=== PATIENT | female | born 1970 | race Caucasian/White ===

== ENCOUNTER 2017-10-18 18:30 | Emergency (ER) | payer OTHER ==
[~2017-10-18] VITALS: Ht 160 cm; Wt 65.0 kg
[~2017-10-18 18:30] MED LIST: CIPR500T4 PO; GABA100C4 PO; KETO10 PO; STOO100C PO
[2017-10-18 18:42] VITALS: BP 147/87; PULSE 59; RESP 18; TEMP 98.1; O2SAT 98
[2017-10-18] MEDS ORDERED: [UNRECOGNIZED DRUG - REMARK] (18:47)
--- NOTE | 2017-10-18 18:57 | PD ---
HPI Chief Complaint: Psychiatric Symptoms Time Seen by Provider: 18:45 Travel History International Travel<30 days: No Contact w/Intl Traveler<30days: No Traveled to known affect area: No History of Present Illness HPI 47-year-old female presents emergency department under the Shea act via EMS for making suicidal comments to her roommate. Patient states she wants to kill herself. Patient recently had a stroke, and the roommate advised that there is a firearm in the house which the patient has stated she wanted to kill herself with. Patient has history of polysubstance abuse. She states she did use crack 2 days ago. She is upset and frustrated with her inability to care for herself and recurrent falls secondary to her recent CVA. Patient was treated for this at [facility] in [place] approximately 2 months ago. She currently has no significant acute pain or other acute medical issues. She is noted to have multiple bruises and superficial abrasions in various stages of healing. She has no known drug allergies. PFSH Past Medical History Cancer: No Cardiovascular Problems: No Diabetes: No Endocrine: No Genitourinary: No Hepatitis: Yes (c) Hiatal Hernia: No Immune Disorder: No Musculoskeletal: Yes (back pain) Neurologic: No Psychiatric: Yes (anxiety a long time ago ok now) Reproductive: Yes (fibroids) Respiratory: No Thyroid Disease: No ?: Not Past Surgical History Abdominal Surgery: Yes (lap keyla) AICD: No Body Medical Devices: NONE Cardiac Surgery: No Ear Surgery: No Endocrine Surgery: No Eye Surgery: No Genitourinary Surgery: No Gynecologic Surgery: Yes (tubal) Joint Replacement: No Oral Surgery: Yes (tonsillectomy) Pacemaker: No Social History Alcohol Use: Yes Tobacco Use: Yes Substance Use: Yes (RELAPSED COCAINE) Allergies-Medications (Allergen,Severity, Reaction): Coded Allergies: No Known Allergies (Unverified , 11/12/15) Reported Meds & Prescriptions Reported Meds & Active Scripts Active Gabapentin 100 Mg Cap 100 Mg PO DAILY Toradol (Ketorolac Tromethamine) 10 Mg Tab 10 Mg PO Q6H PRN Reported Colace (Docusate Sodium) 100 Mg Cap 100 Mg PO BID Cipro (Ciprofloxacin HCl) 500 Mg Tab 500 Mg PO BID Review of Systems Except as stated in HPI: all other systems reviewed are Neg General / Constitutional: No: Fever Eyes: No: Visual changes HENT: No: Headaches Cardiovascular: No: Chest Pain or Discomfort Respiratory: No: Shortness of Breath Gastrointestinal: No: Abdominal Pain Genitourinary: No: Dysuria Musculoskeletal: No: Pain Skin: Positive Lesions (See history of present illness per), No Rash Neurologic: Positive: Focal Abnormalities (See history of present illness), Slurred Speech, No: Weakness Psychiatric: No: Depression Endocrine: No: Polydipsia Hematologic/Lymphatic: No: Easy Bruising Physical Exam Narrative GENERAL: Patient appears frustrated, but oriented 3. She is able to speak in full sentences. She does have mild slurred speech due to left sided facial weakness SKIN: Warm and dry. Normal color. Normal turgor. Patient has multiple bruises everywhere in multiple stages of healing secondary to recurrent falls. Patient is also noted to have minor abrasions associated with falling as well. Nothing is currently acute or has signs of cellulitis or abscess. HEAD: Atraumatic. Normocephalic. Nontender. EYES: Pupils equal and round. No scleral icterus. No injection or drainage. Patient's left upper eyelid is slightly bruised. She has left-sided eye droop. ENT: No nasal bleeding or discharge. Mucous membranes pink and moist. No signs of dental injury. Pharynx is clear. Airways patent. Left-sided facial droop is noted. NECK: Trachea midline. No bony tenderness or step-off. Range of motion is full and supple CARDIOVASCULAR: Regular rate and rhythm. RESPIRATORY: No accessory muscle use. Clear to auscultation. Breath sounds equal bilaterally. GASTROINTESTINAL: Abdomen soft, non-tender, nondistended. Hepatic and splenic margins not palpable. MUSCULOSKELETAL: Extremities without clubbing, cyanosis, or edema. No obvious deformities. Patient is right-sided weakness secondary to previous CVA. NEUROLOGICAL: Awake and alert. No obvious cranial nerve deficits. Motor grossly within normal limits. Mildly slurred speech. PSYCHIATRIC: Appropriate mood and affect; insight and judgment normal. Data Data Last Documented VS Vital Signs Date Time Temp Pulse Resp B/P (MAP) Pulse Ox O2 Delivery O2 Flow Rate FiO2 10/18/17 18:42 98.1 59 18 147/87 (107) 98 Orders Orders Complete Blood Count With Diff (10/18/17 18:45) Comprehensive Metabolic Panel (10/18/17 18:45) Thyroid Stimulating Hormone (10/18/17 18:45) Urinalysis - C+S If Indicated (10/18/17 18:45) Psych Screen (10/18/17 18:45) Drug Screen, Random Urine (10/18/17 18:45) Alcohol (Ethanol) (10/18/17 18:45) MDM Medical Decision Making Medical Screen Exam Complete: Yes Emergency Medical Condition: Yes Medical Record Reviewed: Yes Differential Diagnosis Shea act. Depression. Suicidal ideation. Recent CVA. History drug use. Narrative Course Patient appears medically stable at time of exam. Psychiatric labs ordered per protocol. Patient is medically clear for psychiatric evaluation. Psych screen is ordered. Condition: Stable Umair Rome October 18, 2017 18:57
[2017-10-18 18:59] LABS: AUTOMATED NEUTROPHIL # 6.8 TH/MM3 (1.8-7.7); BASOPHIL # 0.1 TH/MM3 (0-0.2); BASOPHIL % 0.8 % (0.0-2.0); EOSINOPHIL # 0.1 TH/MM3 (0-0.4); EOSINOPHIL % 1.2 % (0.0-4.0); HEMATOCRIT 37.6 % (35.0-46.0); LYMPH % 16.9 % (9.0-44.0); LYMPHOCYTE # 1.7 TH/MM3 (1.0-4.8); MEAN CELL VOLUME 86.8 FL (80.0-100.0); MEAN CORPUSCULAR HGB CONC 34.6 % (32.0-36.0); MEAN PLATELET VOLUME 9.1 FL (7.0-11.0); MONO % 11.1 % (0.0-8.0); MONOCYTE # 1.1 TH/MM3 (0-0.9); PLATELET COUNT 282 TH/MM3 (150-450); RED BLOOD COUNT 4.34 MIL/MM3 (4.00-5.30); RED CELL DISTRIBUTION WIDTH 13.3 % (11.6-17.2); WHITE BLOOD COUNT 9.8 TH/MM3 (4.0-11.0)
[2017-10-18 19:28] LABS: ALBUMIN 3.9 GM/DL (3.4-5.0); AST (GOT) 45 U/L (15-37); BICARBONATE 23.3 MEQ/L (21.0-32.0); BLOOD UREA NITROGEN 13 MG/DL (7-18); CALCIUM 8.8 MG/DL (8.5-10.1); CHLORIDE 110 MEQ/L (98-107); CREATININE 0.81 MG/DL (0.50-1.00); GLOMERULAR FILTRATION RATE 75 ML/MIN (>89); GLUCOSE,RANDOM 89 MG/DL (74-106); SODIUM (NA) 144 MEQ/L (136-145)
[2017-10-18 19:29] LABS: ALT (GPT) 49 U/L (10-53)
[2017-10-18 19:38] LABS: ALKALINE PHOSPHATASE 67 U/L (45-117); TOTAL BILIRUBIN ADULT 0.7 MG/DL (0.2-1.0); TOTAL PROTEIN 7.6 GM/DL (6.4-8.2)
[2017-10-18] MEDS ORDERED: POTASSIUM CHLORIDE 20 MEQ CONTROLLED RELEASE TAB PO ONE (22:00)
[2017-10-18 23:51] LABS: BACTERIA, URINE RARE /hpf; BILIRUBIN, URINE NEG (NEG); BLOOD, URINE NEG (NEG); GLUCOSE,URINE NEG (NEG); KETONE, URINE 10 mg/dL (NEG); MUCUS URINE MOD /lpf (OCC); NITRITE,URINE POS (NEG); PH, URINE 5.5 (5.0-8.5); SQUAMOUS EPITHELIAL CELL URINE 4 /hpf (0-5); URINE COLOR YELLOW (YELLW/STRAW); URINE LEUKOCYTE ESTERASE TRACE (NEG)
[2017-10-19 09:36] VITALS: BP 125/56; PULSE 50; RESP 15; TEMP 98.2; O2SAT 98
--- NOTE | 2017-10-19 11:53 | PD ---
History of Present Illness Chief Complaint: Psychiatric Symptoms Time Seen by Provider: 11:45 Travel History International Travel<30 Days: No Contact w/Intl Traveler<30days: No Known affected area: No Legal Status Legal Status: Shea Act Shea Act Signed By: RAF MONTES History of Present Illness: History of Present Illness HPI 47-year-old, , single female with history of cocaine use disorder who presents emergency department under the Shea act via EMS for making suicidal comments to her roommate. The Shea act alleges that the patient has been making suicidal statements to her roommate, Aleah. And that she has stated she wants to kill herself. The room and advised the police that there was a firearm in the house which the patient has stated she wanted to kill herself with. The patient has recently suffered a stroke, has a right-sided weakness and is wheelchair bound. EMR reviewed. No previous contact with [facility] psychiatry. Current toxicology is positive for cocaine. The patient admits to having used cocaine 2 days ago. Staff has contacted her roommate who reports the patient had been up for 4 days after the use of crack cocaine. That she has been making statements as stated in the Shea act. Patient is seen in Main ED. She is asleep but awakens with verbal stimuli but reports she feels very tired. Her speech is clear and logical. Mood is irritable. She states that she did not say she wanted to kill herself . She admits to having stated that she had preferred that she would have after the stroke. She does not have access to the weapon as it belongs to the friend Carrington and he usually carries it on his person. She also states she does not know how to use a gun. Patient goes on to state that her friends called 911 because they wanted her to get help and she was refusing to come to the hospital for evaluation of swelling in 1 of her legs. Patient continues to deny any suicidal or homicidal ideation and states "I do not want to do that because I want to live". Telephone call to friend at [phone]. Message left to return call. PFSH Past Medical History Cancer: No Cardiovascular Problems: No Cerebrovascular Accident: Yes Diabetes: No Endocrine: No Genitourinary: No Hepatitis: Yes (c) Hiatal Hernia: No Hypertension: Yes Immune Disorder: No Musculoskeletal: Yes (back pain) Neurologic: No Psychiatric: Yes (anxiety a long time ago ok now) Reproductive: Yes (fibroids) Respiratory: No Thyroid Disease: No Tetanus Vaccination: Unknown Influenza Vaccination: No ?: Not Past Surgical History Abdominal Surgery: Yes (lap keyla) AICD: No Body Medical Devices: NONE Cardiac Surgery: No Ear Surgery: No Endocrine Surgery: No Eye Surgery: No Genitourinary Surgery: No Gynecologic Surgery: Yes (tubal) Joint Replacement: No Oral Surgery: Yes (tonsillectomy) Pacemaker: No Other Surgery: Yes Psychiatric History Psychiatric History Hx Psychiatric Treatment: NONE. No previous suicide attempt. History of Inpatient Treatment: No Guns or firearms in home: Yes (Belong to a roommate. Patient states she does not have access to the gun.) Social History Single female. With history of substance use including cocaine, alcohol, marijuana. Currently unemployed and lives with roommates. Hx Alcohol Use: Yes (occ) Hx Tobacco Use: Yes Hx Substance Use: Yes Substance Use Type: Alcohol, Crack Hx of Substance Use Treatment: No Family Psychiatric History Negative Allergies-Medications (Allergen,Severity, Reaction): Coded Allergies: No Known Allergies (Unverified , 11/12/15) Reported Meds & Prescriptions Reported Meds & Active Scripts Active Reported [blood pre meds] Review of Systems Constitutional: COMPLAINS OF: Weight loss Eyes: COMPLAINS OF: Vision loss Neurologic: COMPLAINS OF: Speech Problems (Secondary to stroke), Poor Balance Psychiatric: DENIES: Anxiety, Confusion, Mood changes, Depression, Hallucinations, Agitation, Suicidal Ideation, Homicidal Ideation, Delusions Mental Status Examination Appearance: Disheveled, Malodorous Consciousness: Alert Orientation: x4 Motor Activity: Other (Right-sided weakness wheelchair bound) Speech: Speech impediment (Secondary to stroke) Language: Adequate Fund of Knowledge: Adequate Attention and Concentration: Easily Distracted Memory: Unremarkable Mood: Irritable Affect: Irritable Thought Process & Associations: Intact, Logical, Goal directed Thought Content: Appropriate Hallucination Type: None Delusion Type: None Suicidal Ideation: No Suicidal Plan: No Suicidal Intention: No Homicidal Ideation: No Homicidal Plan: No Homicidal Intention: No Insight: Poor Judgment: Impulsive MDM Medical Decision Making Medical Record Reviewed: Yes Assessment/Plan History of Present Illness 47-year-old, , single female with history of cocaine use disorder who presents emergency department under the Shea act via EMS for making suicidal comments to her roommate. The Shea act alleges that the patient has been making suicidal statements to her roommate, Aleah. And that she has stated she wants to kill herself. The room and advised the police that there was a firearm in the house which the patient has stated she wanted to kill herself with. Patient was monitor and secure environment and presented no behavioral dysregulation and no suicidality. There is no evidence of any psychosis, no tanner or hypomania. She denies any suicidal or homicidal ideation, intent or plan. Although there is a weapon in the home she does not have access to it and due to her residual weakness secondary to the stroke she is unable to use that firearm. Patient was under the influence of cocaine when the Shea act was initiated. Psychoeducation is provided. BA is lifted. Psychiatrically clear for discharge Orders Orders Complete Blood Count With Diff (10/18/17 18:45) Comprehensive Metabolic Panel (10/18/17 18:45) Thyroid Stimulating Hormone (10/18/17 18:45) Urinalysis - C+S If Indicated (10/18/17 18:45) Psych Screen (10/18/17 18:45) Drug Screen, Random Urine (10/18/17 18:45) Alcohol (Ethanol) (10/18/17 18:45) Potassium Chloride (Kcl) (10/18/17 22:00) Urine Culture (10/18/17 23:40) Diet Regular Basic (10/19/17 Breakfast) Results Vital Signs Date Time Temp Pulse Resp B/P (MAP) Pulse Ox O2 Delivery O2 Flow Rate FiO2 10/19/17 09:36 98.2 50 15 125/56 (79) 98 Room Air 10/18/17 18:47 59 18 10/18/17 18:42 98.1 59 18 147/87 (107) 98 Laboratory Tests Test 10/18/17 18:45 10/18/17 23:40 White Blood Count 9.8 Red Blood Count 4.34 Hemoglobin 13.0 Hematocrit 37.6 Mean Corpuscular Volume 86.8 Mean Corpuscular Hemoglobin 30.0 Mean Corpuscular Hemoglobin Concent 34.6 Red Cell Distribution Width 13.3 Platelet Count 282 Mean Platelet Volume 9.1 Neutrophils (%) (Auto) 70.0 Lymphocytes (%) (Auto) 16.9 Monocytes (%) (Auto) 11.1 Eosinophils (%) (Auto) 1.2 Basophils (%) (Auto) 0.8 Neutrophils # (Auto) 6.8 Lymphocytes # (Auto) 1.7 Monocytes # (Auto) 1.1 Eosinophils # (Auto) 0.1 Basophils # (Auto) 0.1 CBC Comment DIFF FINAL Differential Comment Blood Urea Nitrogen 13 Creatinine 0.81 Random Glucose 89 Total Protein 7.6 Albumin 3.9 Calcium Level 8.8 Alkaline Phosphatase 67 Aspartate Amino Transf (AST/SGOT) 45 Alanine Aminotransferase (ALT/SGPT) 49 Total Bilirubin 0.7 Sodium Level 144 Potassium Level 3.0 Chloride Level 110 Carbon Dioxide Level 23.3 Anion Gap 11 Estimat Glomerular Filtration Rate 75 Thyroid Stimulating Hormone 3rd Gen 0.520 Ethyl Alcohol Level LESS THAN 3 Urine Color YELLOW Urine Turbidity HAZY Urine pH 5.5 Urine Specific [place] 1.027 Urine Protein 30 Urine Glucose (UA) NEG Urine Ketones 10 Urine Occult Blood NEG Urine Nitrite POS Urine Bilirubin NEG Urine Urobilinogen LESS THAN 2.0 Urine Leukocyte Esterase TRACE Urine RBC 12 Urine WBC 15 Urine Squamous Epithelial Cells 4 Urine Bacteria RARE Urine Mucus MOD Microscopic Urinalysis Comment CULTURE INDICATED Urine Opiates Screen NEG Urine Barbiturates Screen NEG Urine Amphetamines Screen NEG Urine Benzodiazepines Screen NEG Urine Cocaine Screen POS Urine Cannabinoids Screen NEG Date/Time Source Procedure Growth Status 10/18/17 23:40 Urine Clean Catch Urine Culture Pending Received Diagnosis Primary Impression: Cocaine abuse Additional Impression: Substance induced mood disorder Psychiatrically Cleared: Yes Med/ Other Pt Specific Info: No Meds Exist/No RX given Disposition: 01 DISCHARGE HOME Condition: Stable Problem Qualifiers Talya Pugh October 19, 2017 11:53
--- NOTE | 2017-10-19 12:13 | PD ---
Physical Exam Time Seen by Provider: 12:09 MK Ly has evaluated patient, lifted the Shea act and cleared the patient for discharge. Data Data Last Documented VS Vital Signs Date Time Temp Pulse Resp B/P (MAP) Pulse Ox O2 Delivery O2 Flow Rate FiO2 10/19/17 09:36 98.2 50 15 125/56 (79) 98 Room Air Orders Orders Complete Blood Count With Diff (10/18/17 18:45) Comprehensive Metabolic Panel (10/18/17 18:45) Thyroid Stimulating Hormone (10/18/17 18:45) Urinalysis - C+S If Indicated (10/18/17 18:45) Psych Screen (10/18/17 18:45) Drug Screen, Random Urine (10/18/17 18:45) Alcohol (Ethanol) (10/18/17 18:45) Potassium Chloride (Kcl) (10/18/17 22:00) Urine Culture (10/18/17 23:40) Diet Regular Basic (10/19/17 Breakfast) Ed Discharge Order (10/19/17 12:13) Labs Laboratory Tests Test 10/18/17 18:45 10/18/17 23:40 White Blood Count 9.8 TH/MM3 Red Blood Count 4.34 MIL/MM3 Hemoglobin 13.0 GM/DL Hematocrit 37.6 % Mean Corpuscular Volume 86.8 FL Mean Corpuscular Hemoglobin 30.0 PG Mean Corpuscular Hemoglobin Concent 34.6 % Red Cell Distribution Width 13.3 % Platelet Count 282 TH/MM3 Mean Platelet Volume 9.1 FL Neutrophils (%) (Auto) 70.0 % Lymphocytes (%) (Auto) 16.9 % Monocytes (%) (Auto) 11.1 % Eosinophils (%) (Auto) 1.2 % Basophils (%) (Auto) 0.8 % Neutrophils # (Auto) 6.8 TH/MM3 Lymphocytes # (Auto) 1.7 TH/MM3 Monocytes # (Auto) 1.1 TH/MM3 Eosinophils # (Auto) 0.1 TH/MM3 Basophils # (Auto) 0.1 TH/MM3 CBC Comment DIFF FINAL Differential Comment Blood Urea Nitrogen 13 MG/DL Creatinine 0.81 MG/DL Random Glucose 89 MG/DL Total Protein 7.6 GM/DL Albumin 3.9 GM/DL Calcium Level 8.8 MG/DL Alkaline Phosphatase 67 U/L Aspartate Amino Transf (AST/SGOT) 45 U/L Alanine Aminotransferase (ALT/SGPT) 49 U/L Total Bilirubin 0.7 MG/DL Sodium Level 144 MEQ/L Potassium Level 3.0 MEQ/L Chloride Level 110 MEQ/L Carbon Dioxide Level 23.3 MEQ/L Anion Gap 11 MEQ/L Estimat Glomerular Filtration Rate 75 ML/MIN Thyroid Stimulating Hormone 3rd Gen 0.520 uIU/ML Ethyl Alcohol Level LESS THAN 3 MG/DL Urine Color YELLOW Urine Turbidity HAZY Urine pH 5.5 Urine Specific [place] 1.027 Urine Protein 30 mg/dL Urine Glucose (UA) NEG mg/dL Urine Ketones 10 mg/dL Urine Occult Blood NEG Urine Nitrite POS Urine Bilirubin NEG Urine Urobilinogen LESS THAN 2.0 MG/DL Urine Leukocyte Esterase TRACE Urine RBC 12 /hpf Urine WBC 15 /hpf Urine Squamous Epithelial Cells 4 /hpf Urine Bacteria RARE /hpf Urine Mucus MOD /lpf Microscopic Urinalysis Comment CULTURE INDICATED Urine Opiates Screen NEG Urine Barbiturates Screen NEG Urine Amphetamines Screen NEG Urine Benzodiazepines Screen NEG Urine Cocaine Screen POS Urine Cannabinoids Screen NEG MDM Supervised Visit with SHAYLEE: No Narrative Course MK Babin has evaluated patient, lifted the Shea act and cleared the patient for discharge. Patient contracts safety. Denies suicidal or homicidal ideations. Patient will be provided community resource packet to [facility] for follow-up. Has friends and family for support. Patient was medically cleared by alternate provider prior to psych screening. Patient has been evaluated by psychiatry and and is now cleared for discharge. Diagnosis Primary Impression: Cocaine abuse Additional Impression: Substance induced mood disorder Referrals: [facility] (Out patient) [facility] Primary Care Physician Psychiatrist Nhi [facility] Patient Instructions: Cocaine Abuse (ED), General Instructions, Mood Disorders (ED), Polysubstance Abuse (ED) Additional Instruction: Contract safety to your self and others Follow-up with psychiatry Follow-up with primary care provider Follow-up with Oliverio Mckinney Return to the emergency department immediately with worsening of symptoms Med/Other Pt SpecificInfo: No Change to Meds, No Meds Exist/No RX given Disposition: 01 DISCHARGE HOME Condition: Stable Simin Abad October 19, 2017 12:13
[2017-10-19 13:01] VITALS: BP 110/54; PULSE 54; RESP 16; O2SAT 100
== END 2017-10-19 15:29 | disposition home or self-care (01) ==
LOC: NEPD 18:30
DX: F14.14 Cocaine abuse with cocaine-induced mood disorder (principal); B96.5 Pseudomonas (aeruginosa) (mallei) (pseudomallei) as the cause of diseases classified elsewhere; I10 Essential (primary) hypertension; Z86.73 Personal history of transient ischemic attack (TIA), and cerebral infarction without residual deficits; Z86.19 Personal history of other infectious and parasitic diseases; Z72.0 Tobacco use; Z91.81 History of falling; Z99.3 Dependence on wheelchair; Z79.899 Other long term (current) drug therapy
CPT/HCPCS: 80053; 80307; 81001; 84443; 85025; 87077; 87086; 87186; 99284